=== PATIENT | male | born 1940 | race Caucasian/White ===

== ENCOUNTER 2018-10-27 18:04 | Emergency (ER) | payer OTHER ==
[~2018-10-27] VITALS: Ht 172.7 cm; Wt 90.7 kg
--- OUTSIDE RECORDS SUMMARY | 2018-10-27 19:58 | XMS ---
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 [place] [facility] (12 MO.) [facility] T[facility] NOTE: Visits indicate total known visits. ED/UCC VISIT TRACKING (12 MO.) [facility]2018 18[facility] COMPLAINT: - GLF [facility]15[facility]2018 16[facility] [facility] DIAGNOSES: 57188. PAIN MEDICATION 29147. Low back pain 40932. Pain in left hip 04/08/2018 06[facility] DIAGNOSES: 38865. FALL L HIP KNEE PAIN 57034. Hypo-osmolality and hyponatremia . Fall on same level, unspecified, initial encounter . Laceration without foreign body of unspecified elbow, initial encounter . Fracture of unspecified part of neck of left femur, initial encounter for closed fracture . Abnormal electrocardiogram [ECG] [EKG] 04/08/2018 05:40 [facility] [place] TYPE: Emergency 02/23/2018 12:06 [facility] [place] TYPE: Emergency DIAGNOSES: 61362. L HIP PAIN GLF . Spinal stenosis, lumbar region without neurogenic claudication . Wedge compression fracture of T11-T12 vertebra, initial encounter for closed fracture . Pain, unspecified . Radiculopathy, lumbar region 02/13/2018 13:49 [facility] [place] TYPE: Emergency DIAGNOSES: 74159. Fall . Wedge compression fracture of unspecified thoracic vertebra, initial encounter for closed fracture 24535. Difficulty in walking, not elsewhere classified 69812. Dorsalgia, unspecified 12/30/2017 13:17 [facility] [place] TYPE: Emergency DIAGNOSES: 80097. Weakness 98414. Weakness 87289. Adverse effect of anticoagulants, initial encounter 29293. Coagulation defect, unspecified 98293. Shortness of breath INPATIENT VISIT TRACKING (12 MO.) 04/08/2018 06:20 [facility] [place] TYPE: Inpatient DIAGNOSES: 93642. Abnormal electrocardiogram [ECG] [EKG] 37671. Fracture of unspecified part of neck of left femur, initial encounter for closed fracture 15071. Hypo-osmolality and hyponatremia 12716. Fall on same level, unspecified, initial encounter 77799. Laceration without foreign body of unspecified elbow, initial encounter 02/23/2018 12:06 [facility] [place] TYPE: Inpatient DIAGNOSES: . Radiculopathy, lumbar region . Spinal stenosis, lumbar region without neurogenic claudication . Wedge compression fracture of T11-T12 vertebra, initial encounter for closed fracture . Spinal stenosis, lumbar region without neurogenic claudication . Pain, unspecified 12/30/2017 13:17 [facility] [place] TYPE: Inpatient DIAGNOSES: . Weakness . Shortness of breath . Coagulation defect, unspecified . Adverse effect of anticoagulants, initial encounter [email or web address]
== END 2018-10-27 19:28 | disposition home or self-care (01) ==
LOC: ED 18:04 → EDBD 18:06 → ED 19:28
DX: S09.90XA Unspecified injury of head, initial encounter (principal); S20.211A Contusion of right front wall of thorax, initial encounter; W22.8XXA Striking against or struck by other objects, initial encounter; I10 Essential (primary) hypertension; I48.91 Unspecified atrial fibrillation; E11.9 Type 2 diabetes mellitus without complications; Z88.0 Allergy status to penicillin
CPT/HCPCS: 70450; 71045; 85025; 85610; 99284-25